=== PATIENT | female | born 1990 | race American Indian/Alaskan Native ===

== ENCOUNTER 2018-06-11 08:15 | Emergency (ER) | payer BC, MEDICAID ==
[2018-06-11 08:34] VITALS: BP 115/75
--- NOTE | 2018-06-11 09:01 | ED PDOC ---
Arrival/HPI - General Chief Complaint: Eye Problem Time Seen by Provider: 06/11/18 08:43 Historian: Patient - History of Present Illness Narrative History of Present Illness (Text): 06/11/18 08:58 28 year old female, with no significant past medical history, who presents to the Emergency department complaining of rt eye irritation. Patient states she woke up to use the bathroom this morning when she felt like something was in her eye. Patient tried to flush out the eye with water and visine which provided minimal relief. Patient denies any fevers, chills, chest pain, shortness of breath, abdominal pain, nausea, vomiting, diarrhea, back pain, neck pain, urinary symptoms, headache, dizziness, or any other complaint. Time/Duration: Prior to Arrival Symptom Onset: Gradual Symptom Course: Unchanged Activities at Onset: Light Context: Home Past Medical History - Provider Review Nursing Documentation Reviewed: Yes - Infectious Disease Hx of Infectious Diseases: None - Reproductive Menopause: No - Psychiatric Hx Substance Use: No - Anesthesia Hx Anesthesia: No Family/Social History - Physician Review Nursing Documentation Reviewed: Yes Family/Social History: Unknown Family HX Smoking Status: Unknown If Ever Smoked Hx Alcohol Use: No Hx Substance Use: No Allergies/Home Meds Allergies/Adverse Reactions: Allergies No Known Allergies Allergy (Verified 06/11/18 08:34) Home Medications: Home Meds Medication Instructions Recorded Confirmed RX: No Known Home Med 06/11/18 06/11/18 Review of Systems - Physician Review All systems were reviewed & negative as marked: Yes - Review of Systems Constitutional: Normal Eyes: Eye Pain (eye irritation to the medial aspect of the rt eye) ENT: Normal Respiratory: Normal. absent: SOB, Cough Cardiovascular: Normal. absent: Chest Pain Gastrointestinal: Normal. absent: Abdominal Pain, Diarrhea, Nausea, Vomiting Genitourinary Female: Normal. absent: Dysuria, Frequency Musculoskeletal: Normal. absent: Back Pain Skin: Normal. absent: Rash Neurological: Normal. absent: Headache, Dizziness Endocrine: Normal Hemo/Lymphatic: Normal Psychiatric: Normal Physical Exam - Physical Exam Narrative Physical Exam (Text): 06/11/18 09:02 Gen: NAD, cooperative, well appearing, non-toxic. Head: NCAT. EYES: PERRL, EOMI, rt sclera slightly injected Neuro: AAO x 3, CN 2-12 intact, motor and sensory grossly intact. Vital Signs Reviewed: Yes Vital Signs Temp Pulse Resp BP Pulse Ox 06/11/18 08:30 98.4 F 84 18 115/75 99 Temperature: Afebrile Blood Pressure: Normal Pulse: Regular Respiratory Rate: Normal Appearance: Positive for: Well-Appearing, Non-Toxic, Comfortable Pain Distress: None Mental Status: Positive for: Alert and Oriented X 3 Medical Decision Making ED Course and Treatment: 06/11/18 09:03 Impression: 28 year old female presents to the Emergency department complaining of rt eye irritation. Plan: -- Eyewash -- Reassess and disposition Progress Notes: Patient's rt eye was stained with tetracaine and fluorescein. No uptake was found. Eyelids were everted for inspection and no FB is observed. Pt will under go an eyewash. 06/11/18 09:31 Upon reevaluation, patient states during the eye wash, she felt the "object" move from the medial aspect of the eye to the lateral aspect. However, no foreign body has been found or seen. Patient is not experiencing any drainage from the eye or debris on the lashes. 06/11/18 09:[address] Castellon, ophthalmology, states pt can come straight over to the office for evaluation. Patient is agreeable with plan. - Scribe Statement The provider has reviewed the documentation as recorded by the Scribe Deborah Pagan All medical record entries made by the Scribe were at my direction and personally dictated by me. I have reviewed the chart and agree that the record accurately reflects my personal performance of the history, physical exam, medical decision making, and the department course for this patient. I have also personally directed, reviewed, and agree with the discharge instructions and disposition. Disposition/Present on Arrival - Present on Arrival Any Indicators Present on Arrival: No History of DVT/PE: No History of Uncontrolled Diabetes: No Urinary Catheter: No History of Decub. Ulcer: No History Surgical Site Infection Following: None - Disposition Have Diagnosis and Disposition been Completed?: Yes Diagnosis: Sensation of foreign body in eye Disposition: HOME/ ROUTINE Disposition Time: 09:49 Patient Plan: Discharge Condition: STABLE Discharge Instructions (ExitCare): Foreign Body in Eye (DC) Additional Instructions: RHEA ZAMARRIPA, thank you for letting us take care of you today. Your provider was Angelique Reyes MD and you were treated for EYE PROBLEM. The emergency medical care you received today was directed at your acute symptoms. If you were prescribed any medication, please fill it and take as directed. It may take several days for your symptoms to resolve. Return to the Emergency Department if your symptoms worsen, do not improve, or if you have any other problems. Please go to Dr. Castellon's office immediately after discharge from the Emergency Department. Bring any paperwork you were given at discharge with you along with any medications you are taking to your follow up visit. Our treatment cannot replace ongoing medical care by a primary care provider outside of the emergency department. Thank you for allowing the [facility] team to be part of your care today. If you had an X-Ray or CT scan: A Radiologist will review the ED reading if any change in treatment is needed we will contact you. If you had a blood, urine, or wound culture: It will take several days for the results, if any change in treatment is needed we will contact you. If you had an STI test: It will take 48 hours for the results. Please call after 1 week if you have not heard back. Referrals: Iván Castellon MD [Staff Provider] - Follow up with primary Forms: [employer] ([place]ic), WORK NOTE
[2018-06-11] MEDS ORDERED: Ophthalmic Irrigation, Soln OD STA (09:09)
[2018-06-11 10:01] VITALS: PULSE 85; RESP 19; TEMP 98.2; O2SAT 97
== END 2018-06-11 10:01 | disposition home or self-care (01) ==
LOC: ED 08:15
DX: T15.81XA Foreign body in other and multiple parts of external eye, right eye, initial encounter (principal); X58.XXXA Exposure to other specified factors, initial encounter